=== PATIENT | male | born 2000 | race Caucasian/White ===

== ENCOUNTER 2021-09-01 12:13 | Emergency (ER) | payer MEDICAID ==
[~2021-09-01] VITALS: Ht 177.8 cm; Wt 104.3 kg
--- NOTE | 2021-09-01 12:16 | NUR ---
Patient to ER bed 05 to gown for evaluation. Side rails up.
[2021-09-01 12:19] VITALS: BP_SYST 124
--- NOTE | 2021-09-01 12:25 | NUR ---
ER at bedside examining patient.
--- NOTE | 2021-09-01 12:30 | NUR ---
pt bib self approx 30 minutes ago while driving left sided chest pain travel to right arm felt light headed.
[2021-09-01 12:46] LABS: BASOPHILS % (AUTO) 0.3 % (0.0-2.0); EOSINOPHILS # (AUTO) 0.3 K/uL (0.0-0.4); EOSINOPHILS % (AUTO) 4.8 % (0.0-4.0); HEMATOCRIT 44.3 % (36-54); HEMOGLOBIN 15.2 g/dL (14.0-18.0); LYMPHOCYTES # (AUTO) 1.8 K/uL (1.0-5.5); LYMPHOCYTES % (AUTO) 31.4 % (20.5-51.5); MEAN CORPUSCULAR HEMOGLOBIN 28 pg (27-31); MEAN CORPUSCULAR HGB CONC 34 % (32-36); MEAN CORPUSCULAR VOLUME 83 fL (79.0-98.0); MONOCYTES # (AUTO) 0.5 K/uL (0.0-1.0); MONOCYTES % (AUTO) 8.6 % (1.7-9.3); NEUTROPHILS # (AUTO) 3.2 K/uL (1.8-7.7); NEUTROPHILS % (AUTO) 54.9 % (40.0-70.0); PLATELET COUNT (AUTO) 231 K/uL (130-430); RED BLOOD CELL COUNT(AUTO) 5.35 MIL/uL (4.2-6.2); RED CELL DISTRIBUTION WIDTH 12.7 % (9.0-15.0); WHITE BLOOD COUNT (AUTO) 5.8 K/uL (4.8-10.8)
[2021-09-01 13:00] LABS: CALCIUM 8.9 mg/dL (8.4-11.0); CREATININE 0.85 mg/dL (0.55-1.30); POTASSIUM 4.4 mmol/L (3.5-5.1)
[2021-09-01 13:07] LABS: ALBUMIN 3.8 g/dL (3.4-4.8); TOTAL BILIRUBIN 0.4 mg/dL (0.0-1.0)
--- NOTE | 2021-09-01 13:15 | NUR ---
pt and mother updated about ultra sound
--- NOTE | 2021-09-01 13:16 | NUR ---
ultrasound at bedside
[2021-09-01] MEDS ORDERED: OMEP20CA15 PO (13:42)
[2021-09-01] MEDS ORDERED: PANTOPRAZOLE SODIUM 40 MG TAB PO ONE (13:45)
[2021-09-01 13:51] VITALS: BP_SYST 122
--- NOTE | 2021-09-01 13:53 | NUR ---
Patient given written and verbal discharge instructions and verbalizes understanding. EDWIN mock MD discussed with patient the results and treatment provided. Patient in stable condition. ID arm band removed. Rx of prilosec given. Patient educated on pain management and to follow up with PMD. Pain Scale 0. Opportunity for questions provided and answered. Medication side effect fact sheet provided.
== END 2021-09-01 13:51 | disposition home or self-care (01) ==
LOC: SED 12:13
DX: K29.70 Gastritis, unspecified, without bleeding (principal)
CPT/HCPCS: 36415; 71045; 76700-TC; 80053; 83690; 84484; 85025; 93005; 99285